=== PATIENT | female | born 1955 | race Caucasian/White ===

== ENCOUNTER 2020-05-17 12:59 | Emergency (ER) | payer BC ==
[2020-05-17] MEDS ORDERED: hydrALAZINE HCl 20 MG/ML VIAL IV ONE (13:12)
[2020-05-17] MEDS ORDERED: SODIUM CHLORIDE 0.9% (FLUSH) 10 ML SYG IV PRN (13:52)
[2020-05-17] MEDS ORDERED: hydrALAZINE HCl 20 MG/ML VIAL IM ONE (14:41)
--- NOTE | 2020-05-17 15:11 | ED.PDOC ---
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 Patient has a history of hypertension. Over the last 3 to 4 days her hypertension has been out of control. She denies any medication noncompliance, dietary indiscretion or any additional stressors other than her work schedule. Patient's been on vacation for the last 3 days. The headache is moderate in intensity, throbbing in nature, nothing makes it better or worse. Patient is tried taking an extra clonidine to help with the pain and this is not helped. Timing/Duration: getting worse, other - 3-4 days Severity: moderate Improving Factors: nothing Worsening Factors: nothing Associated Symptoms: headaches Allergies/Adverse Reactions: Allergies Iron Adverse Reaction (Verified 05/17/20 13:52) Home Medications: Ambulatory Orders Lorazepam [Ativan] 1 mg PO BID PRN #8 tab 05/17/20 Prochlorperazine Tab [Compazine Tab] 10 mg PO Q6H PRN #12 tab 05/17/20 Review of Systems - Review of Systems Constitutional: States: no symptoms reported, see HPI. Denies: chills, fever, malaise, weakness EENTM: States: see HPI, blurred vision. Denies: eye pain, double vision Respiratory: States: no symptoms reported. Denies: cough, short of breath, stridor Cardiology: States: no symptoms reported. Denies: chest pain, palpitations, syncope Gastrointestinal/Abdominal: States: no symptoms reported. Denies: abdominal pain, diarrhea, nausea, vomiting Genitourinary: States: no symptoms reported Musculoskeletal: States: no symptoms reported, see HPI. Denies: back pain, joint pain, neck pain Skin: States: no symptoms reported. Denies: change in color, rash Neurological: States: see HPI, anxiety, headache. Denies: tingling, tremors, weakness Endocrine: States: no symptoms reported Hematologic/Lymphatic: States: no symptoms reported All other Systems: Reviewed and Negative, No Change from Baseline Past Medical History (General) - Patient Medical History Hx Stroke: No Hx of COPD: No Hx Cardiac Disorders: No Hx Hypertension: Yes Hx Diabetes: No Hx Cancer: Yes - Uterine Surgical History: appendectomy, cholecystectomy, Hysterectomy - Vaccination History Hx Influenza Vaccination: Yes Hx Pneumococcal Vaccination: No - Social History Hx Tobacco Use: No Hx Alcohol Use: Yes Hx Substance Use: No Hx Substance Use Treatment: No Hx Depression: No - Female History Patient is a Female of Child Bearing Age (10 -59 yrs old): No Patient : No Family Medical History - Family History Mother Family History: Unknown Physical Exam - Physical Exam General Appearance: Alert, Anxious, Obvious distress, Well Developed, Well Groo med, Well Hydrated, Well Nourished Eye Exam: bilateral normal - no photophobia Ears, Nose, Throat: hearing grossly normal, normal ENT inspection, normal pharynx Neck: non-tender, full range of motion, supple, normal inspection Respiratory: chest non-tender, lungs clear, normal breath sounds, no respiratory distress, no accessory muscle use, respiratory distress Cardiovascular/Chest: normal peripheral pulses, regular rate, rhythm, no edema, no gallop, no JVD, no murmur Gastrointestinal/Abdominal: normal bowel sounds, non tender, soft, no organomegaly, no pulsatile mass Back Exam: normal inspection, no CVA tenderness, no vertebral tenderness Extremity: normal range of motion, non-tender, normal inspection Neurologic: dye feeder II-XII nml as tested, no motor/sensory deficits, alert, normal mood/affect, oriented x 3 Skin Exam: normal color, warm/dry Lymphatic: no adenopathy Progress - Progress Progress: Differential diagnosis: Malignant hypertension, anxiety, narcotics abuse, medication noncompliance among others. 05/17/20 16:26 Patient's blood pressure is come down remarkably. Headache has resolved. Most of the improvement occurred after the IM Ativan. I suspect that much of this is anxiety driven as patient is adamant that she has been taking her blood pressure medicines as indicated. Plan on discharge home with a prescription for some Ativan and follow-up with PCP in 3 to 4 days. Of discussed this plan of care with the patient she voices understanding and agreement. Matthew Esteban M.D. #[id number] - Results/Orders Results/Orders: XR Chest one views Indication: Hypertension. Comparisons: None. Findings: The heart size is within normal limits. No focal airspace opacities are identified. No pneumothorax is seen. No effusions are noted on the lateral view. Impression: No acute cardiopulmonary findings are identified. Electronically signed by: Yobany Reyes MD 05/17/2020 2:18 PM EKG performed 17 May 2020 at 1306 hrs.: Normal sinus rhythm at 76 bpm, left atrial enlargement, left axis deviation, incomplete right bundle branch block, prolonged QT at 424 ms, abnormal EKG. No comparison EKG available at this time. 05/17/20 13:52 Sodium Chloride 0.9% (Flush) [Saline Flush Syringe] 3 ml IV PRN PRN Chest,1 View [RAD] Stat 05/17/20 14:00 EKG STAT 05/17/20 15:28 URINE CULTURE W/COLONY COUNT Stat 05/18/20 09:00 Pulse Ox Daily Laboratory Results - last 24 hr 05/17/20 05/17/20 14:00 15:28 WBC 4.9 RBC 4.84 Hgb 11.5 L Hct 35.0 L MCV 72.2 L MCH 23.8 L MCHC 33.0 RDW 16.4 H Plt Count 284 MPV 7.3 L Absolute Neuts (auto) 3.60 Absolute Lymphs (auto) 0.60 L Absolute Monos (auto) 0.60 Absolute Eos (auto) 0.10 Absolute Basos (auto) 0.10 Neutrophils % 72.8 Lymphocytes % 12.3 L Monocytes % 12.1 H Eosinophils % 1.2 Basophils % 1.6 PT 9.9 INR 1.00 PTT (SP) 22.2 Sodium 136 Potassium 4.2 Chloride 97 L Carbon Dioxide 26 Anion Gap 17.2 BUN 14 Creatinine 0.93 BUN/Creatinine Ratio 15.1 Random Glucose 107 H Serum Osmolality 272.9 L Calcium 10.0 Magnesium 2.3 Total Bilirubin 1.2 H Direct Bilirubin 0.2 Indirect Bilirubin 1.0 H AST 20 ALT 15 Alkaline Phosphatase 72 Creatine Kinase 43 CK-MB (CK-2) 1.7 CK-MB (CK-2) % Not Reportable Troponin I < 0.02 Serum Total Protein 8.4 H Albumin 5.3 Urine Color Yellow Urine Appearance Clear Urine pH 7.0 Ur Specific [place] 1.020 Urine Protein Negative Urine Glucose (UA) Negative Urine Ketones 40 H Urine Blood Negative Urine Nitrite Negative Urine Bilirubin Small H Urine Urobilinogen 0.2 Ur Leukocyte Esterase Small H Urine RBC 0 Urine WBC 3-5 H Ur Epithelial Cells 1-3 Urine Bacteria Rare Vital Signs 05/17/20 05/17/20 05/17/20 13:00 13:43 14:00 Temperature 96.4 F L Pulse Rate [ 81 81 82 Pulse ox] Respiratory 18 20 Rate Blood Pressure 207/111 179/106 [R arm] O2 Sat by Pulse 98 99 Oximetry 05/17/20 05/17/20 05/17/20 14:07 15:00 15:30 Temperature Pulse Rate [ 82 92 H Pulse ox] Respiratory 16 20 Rate Blood Pressure 159/119 137/65 [R arm] O2 Sat by Pulse 98 98 99 Oximetry Departure - Departure Clinical Impression: Accelerated hypertension, Anxiety Headache Qualifiers: Headache type: unspecified Headache chronicity pattern: acute headache Intractability: not intractable Qualified Code(s): R51 - Headache Disposition: Discharge to Home or Self Care Condition: Good Departure Forms: ED Discharge - Pt. Copy, Patient Portal Self Enrollment Instructions: DI for High Blood Pressure, Headache, Adult (DC), Malignant Hypertension (DC), Anxiety, Adult (DC) Diet: resume usual diet Activity: increase activity as tolerated Prescriptions: Lorazepam [Ativan] 1 mg PO BID PRN #8 tab PRN Reason: Anxiety Prochlorperazine Tab [Compazine Tab] 10 mg PO Q6H PRN #12 tab PRN Reason: Headache Or Mild Pain Home Medications: Ambulatory Orders Lorazepam [Ativan] 1 mg PO BID PRN #8 tab 05/17/20 Prochlorperazine Tab [Compazine Tab] 10 mg PO Q6H PRN #12 tab 05/17/20
[2020-05-17 16:43] VITALS: BP 99/51; TEMP 97.2; O2SAT 96
== END 2020-05-17 16:37 | disposition home or self-care (01) ==
LOC: ER 12:59
DX: I10 Essential (primary) hypertension (principal); R51 Headache; F41.9 Anxiety disorder, unspecified; H53.8 Other visual disturbances; I45.10 Unspecified right bundle-branch block; I45.81 Long QT syndrome; Z85.42 Personal history of malignant neoplasm of other parts of uterus; Z79.899 Other long term (current) drug therapy; Z88.8 Allergy status to other drugs, medicaments and biological substances
CPT/HCPCS: 36415; 71045; 80048; 80076; 81001; 82550; 82553; 84484; 85025; 85610; 85730; 87086; 93005; 94760; J0360; J2060